=== PATIENT | male | born 1960 | race Caucasian/White ===

== ENCOUNTER → 2017-10-15 | Outpatient (CLI) | payer OTHER ==
--- NOTE | 2017-10-15 15:24 | RADRPT ---
EXAM DATE/TIME: 10/15/2017 15:09 [place] COMPARISON: No previous studies available for comparison. INDICATIONS : Evaluate for pneumonia, pneumothorax, and communicable diseases. Pre-op foot surgery MEDICAL HISTORY : TB SURGICAL HISTORY : None. ENCOUNTER: Initial ACUITY: 1 day PAIN SCORE: 0/10 LOCATION: chest FINDINGS: PA and lateral views of the chest demonstrate the lungs to be symmetrically aerated without evidence of mass, infiltrate or effusion. The cardiomediastinal contours are unremarkable. Osseous structure s are intact. CONCLUSION: No acute disease. Marko Lucio MD FACR on October 15, 2017 at 15:23 Board Certified Radiologist. This report was verified electronically.
--- NOTE | 2017-10-16 18:48 | EKG ---
Date Performed: 10/15/2017 Time Performed: 14:31:32 PTAGE: 57 years EKG: Sinus rhythm . Inferior T wave changes are nonspecific Borderline ECG NO PREVIOUS TRACING DOCTOR: Blair Sauceda Interpretating Date/Time 10/16/2017 18:43:45
== END ==
LOC: HCAV 14:17
PROVIDERS: ATTEND Podiatrist Foot & Ankle Surgery
DX: Z13.9 Encounter for screening, unspecified (principal); R94.31 Abnormal electrocardiogram [ECG] [EKG]
CPT/HCPCS: 71046; 93005